=== PATIENT | female | born 1935 | race Two or more races ===

== ENCOUNTER 2016-10-23 09:26 | Outpatient (CLI) | payer MEDICARE, OTHER | END 2016-10-23 09:27 | disposition home or self-care (01) | DX: I12.9 Hypertensive chronic kidney disease with stage 1 through stage 4 chronic kidney disease, or unspecified chronic kidney disease (principal); N18.4 Chronic kidney disease, stage 4 (severe); D56.9 Thalassemia, unspecified ==

== ENCOUNTER 2016-11-14 07:13 | Outpatient (CLI) | payer MEDICARE, OTHER | END 2016-11-14 07:14 | disposition home or self-care (01) | DX: R19.7 Diarrhea, unspecified (principal) ==

== ENCOUNTER 2016-11-24 03:00 | Emergency (ER) | payer MEDICARE, OTHER ==
[2016-11-24] MEDS ORDERED: SODIUM CHLORIDE 0.9% 1,000 ML IV ONE (03:10)
[2016-11-24] MEDS ORDERED: LOPERAMIDE 2 MG CAPSULE PO STA (05:23)
[2016-11-24] MEDS ORDERED: LOPERAMIDE 2 MG CAPSULE PO ONE (05:29)
== END 2016-11-24 05:39 | disposition home or self-care (01) ==
DX: I13.0 Hypertensive heart and chronic kidney disease with heart failure and stage 1 through stage 4 chronic kidney disease, or unspecified chronic kidney disease (principal); N18.4 Chronic kidney disease, stage 4 (severe); I50.9 Heart failure, unspecified; D63.1 Anemia in chronic kidney disease; E78.00 Pure hypercholesterolemia, unspecified; M10.9 Gout, unspecified; Z79.82 Long term (current) use of aspirin; F17.200 Nicotine dependence, unspecified, uncomplicated

== ENCOUNTER 2016-11-27 17:53 | Inpatient (IN) | payer MEDICARE, OTHER ==
[2016-11-27] MEDS ORDERED: ASPIRIN CHEW 81 MG TABLET PO STA (18:43)
[2016-11-27] MEDS ORDERED: SODIUM CHLORIDE 0.9% 1,000 ML IV ONE (18:44)
[2016-11-27] MEDS ORDERED: SODIUM CHLORIDE 0.9% 500 ML IV ONE (18:44)
[2016-11-27] MEDS ORDERED: ASPIRIN CHEW 81 MG TABLET ONE ×2 (18:58→19:13)
[2016-11-27] MEDS ORDERED: ONDANSETRON ODT 4 MG TABLET TL PRN (19:58)
[2016-11-27] MEDS ORDERED: PROCHLORPERAZINE 10 MG/2 ML VIAL IVP PRN (19:58)
[2016-11-27] MEDS ORDERED: ATENOLOL 25 MG TABLET PO SCH (21:00)
[2016-11-27] MEDS ORDERED: FELODIPINE ER 2.5 MG TABLET PO SCH (21:00)
[2016-11-27] MEDS: SODIUM CHLORIDE 0.9% 1,000 ML IV SCH (21:27)
[2016-11-27] MEDS: ATORVASTATIN 10 MG TABLET PO SCH (22:55)
[2016-11-27] MEDS: cloNIDine 0.1 MG TABLET PO SCH (22:55)
[2016-11-27] MEDS: SODIUM CHLORIDE FLUSH 0.9% 10 ML SYRINGE IVP SCH (22:56)
[2016-11-28] MEDS: SODIUM CHLORIDE 0.9% 1,000 ML IV SCH ×2 (00:07→10:06)
[2016-11-28] MEDS ORDERED: FELODIPINE ER 2.5 MG TABLET PO SCH (01:30)
[2016-11-28] MEDS ORDERED: ATENOLOL 25 MG TABLET PO SCH (01:30)
[2016-11-28] MEDS: SODIUM CHLORIDE FLUSH 0.9% 10 ML SYRINGE IVP SCH ×3 (05:44→11:55)
[2016-11-28] MEDS ORDERED: ACETAMINOPHEN 325 MG TABLET PO SCH (06:38)
[2016-11-28] MEDS ORDERED: diphenhydrAMINE 25 MG CAPSULE PO SCH (09:00)
[2016-11-28] MEDS ORDERED: ALLOPURINOL 100 MG TABLET PO SCH (09:00)
[2016-11-28] MEDS: ASPIRIN CHEW 81 MG TABLET PO SCH (09:54)
[2016-11-28] MEDS: cloNIDine 0.1 MG TABLET PO SCH ×2 (09:54→20:35)
[2016-11-28] MEDS: POLYETHYLENE GLYCOL 3350 17 GM PACKET PO SCH (09:55)
[2016-11-28] MEDS: LACTULOSE 10 GM/15 ML BOTTLE PR SCH (09:55)
[2016-11-28] MEDS ORDERED: SODIUM CHLORIDE 0.9% 250 ML IV ONE (10:28)
[2016-11-28] MEDS: NICOTINE 7 MG PATCH TOP SCH (10:47)
[2016-11-28] MEDS: MORPHINE 2 MG/ML SYRINGE IVP PRN (11:55)
[2016-11-28] MEDS: SODIUM BICARBONATE 100 MEQ in DEXTROSE 5% 1,000 ML IV SCH ×2 (12:29→23:49)
[2016-11-28] MEDS: ONDANSETRON 4 MG/2 ML VIAL IVP PRN (12:56)
[2016-11-28] MEDS ORDERED: LORazepam 2 MG/ML SYRINGE IVP SCH (14:00)
[2016-11-28] MEDS: ATORVASTATIN 10 MG TABLET PO SCH (20:35)
[2016-11-29] MEDS: SODIUM CHLORIDE FLUSH 0.9% 10 ML SYRINGE IVP SCH ×3 (06:13→23:00)
[2016-11-29] MEDS: NICOTINE 7 MG PATCH TOP SCH (07:15)
[2016-11-29] MEDS: SODIUM BICARBONATE 100 MEQ in DEXTROSE 5% 1,000 ML IV SCH (10:00)
[2016-11-29] MEDS: LACTULOSE 10 GM/15 ML BOTTLE PR SCH (10:11)
[2016-11-29] MEDS: ASPIRIN CHEW 81 MG TABLET PO SCH (10:11)
[2016-11-29] MEDS: cloNIDine 0.1 MG TABLET PO SCH ×2 (10:11→20:19)
[2016-11-29] MEDS: POLYETHYLENE GLYCOL 3350 17 GM PACKET PO SCH (10:22)
[2016-11-29] MEDS: SODIUM CHLORIDE FLUSH 0.9% 10 ML SYRINGE IVP PRN ×2 (15:47→19:56)
[2016-11-29] MEDS: ONDANSETRON 4 MG/2 ML VIAL IVP PRN (15:47)
[2016-11-29] MEDS ORDERED: FUROSEMIDE 40 MG/4 ML VIAL IVP SCH (19:40)
[2016-11-29] MEDS: ATORVASTATIN 10 MG TABLET PO SCH (20:18)
[2016-11-30] MEDS: SODIUM CHLORIDE FLUSH 0.9% 10 ML SYRINGE IVP SCH ×3 (05:35→20:23)
[2016-11-30] MEDS ORDERED: ALBUTEROL NEB 2.5 MG/3 ML INH PRN (08:17)
[2016-11-30] MEDS: NICOTINE 7 MG PATCH TOP SCH (09:21)
[2016-11-30] MEDS: IPRATROPIUM/ALBUTEROL 3 ML NEB INH PRN ×3 (10:55→20:21)
[2016-11-30] MEDS: POLYETHYLENE GLYCOL 3350 17 GM PACKET PO SCH (11:53)
[2016-11-30] MEDS: ASPIRIN CHEW 81 MG TABLET PO SCH (11:53)
[2016-11-30] MEDS: cloNIDine 0.1 MG TABLET PO SCH (11:53)
[2016-11-30] MEDS: DEXTROSE 5%-0.45% NACL 1,000 ML IV SCH (13:33)
[2016-11-30] MEDS: CEFEPIME 1 GM in SODIUM CHLORIDE 0.9% MINIBAG 100 ML IV SCH (13:33)
[2016-11-30] MEDS ORDERED: CALCIUM GLUCONATE 2,000 MG in SODIUM CHLORIDE 0.9% 100ML 100 ML IV ONE (14:00)
[2016-11-30] MEDS: ENALAPRILAT 1.25 MG/ML VIAL IVP PRN (16:51)
[2016-11-30] MEDS ORDERED: cloNIDine 0.2 MG PATCH TOP SCH (17:00)
[2016-11-30] MEDS ORDERED: methylPREDNISolone SUCCINATE 125 MG/2 ML VIAL IVP ONE (17:00)
[2016-11-30] MEDS: ATORVASTATIN 10 MG TABLET PO SCH (20:23)
[2016-12-01] MEDS: DEXTROSE 5%-0.45% NACL 1,000 ML IV SCH (04:40)
[2016-12-01] MEDS: methylPREDNISolone SUCCINATE 40 MG/ML VIAL IVP SCH ×2 (05:56→14:44)
[2016-12-01] MEDS: SODIUM CHLORIDE FLUSH 0.9% 10 ML SYRINGE IVP SCH ×2 (05:58→14:44)
[2016-12-01] MEDS: MORPHINE 2 MG/ML SYRINGE IVP PRN (07:36)
[2016-12-01] MEDS: NICOTINE 7 MG PATCH TOP SCH (08:18)
[2016-12-01] MEDS: ASPIRIN CHEW 81 MG TABLET PO SCH (08:30)
[2016-12-01] MEDS: POLYETHYLENE GLYCOL 3350 17 GM PACKET PO SCH (08:31)
[2016-12-01] MEDS ORDERED: BISACODYL 10 MG SUPP PR ONE (09:00)
[2016-12-01] MEDS: CEFEPIME 1 GM in SODIUM CHLORIDE 0.9% MINIBAG 100 ML IV SCH (12:05)
[2016-12-01] MEDS ORDERED: CALCIUM GLUCONATE 2,000 MG in SODIUM CHLORIDE 0.9% 100ML 100 ML IV ONE (15:00)
[2016-12-01] MEDS ORDERED: DEXTROSE 5% 1,000 ML IV SCH (15:00)
[2016-12-01] MEDS: SODIUM BICARBONATE 100 MEQ in DEXTROSE 5% 1,000 ML IV SCH (17:07)
[2016-12-01] MEDS ORDERED: LIDOCAINE JELLY 2% 5 ML TUBE TOP ONE ×2 (17:13→18:00)
[2016-12-01] MEDS ORDERED: COCAINE 4 ML BOTTLE TOP ONE ×2 (17:13→18:00)
[2016-12-01] MEDS ORDERED: hydrALAZINE INJ 20 MG/ML VIAL IVP SCH (19:58)
[2016-12-01] MEDS: ATORVASTATIN 10 MG TABLET PO SCH (20:38)
[2016-12-02] MEDS: methylPREDNISolone SUCCINATE 40 MG/ML VIAL IVP SCH ×4 (02:45→22:39)
[2016-12-02] MEDS: SODIUM CHLORIDE FLUSH 0.9% 10 ML SYRINGE IVP SCH ×4 (02:46→22:39)
[2016-12-02] MEDS: SODIUM BICARBONATE 100 MEQ in DEXTROSE 5% 1,000 ML IV SCH ×2 (05:13→18:47)
[2016-12-02] MEDS: IPRATROPIUM/ALBUTEROL 3 ML NEB INH PRN (07:35)
[2016-12-02] MEDS: NICOTINE 7 MG PATCH TOP SCH (09:41)
[2016-12-02] MEDS: ASPIRIN CHEW 81 MG TABLET PO SCH (09:41)
[2016-12-02] MEDS: SODIUM CHLORIDE FLUSH 0.9% 10 ML SYRINGE IVP PRN (09:42)
[2016-12-02] MEDS: POLYETHYLENE GLYCOL 3350 17 GM PACKET PO SCH (09:42)
[2016-12-02] MEDS: CEFEPIME 1 GM in SODIUM CHLORIDE 0.9% MINIBAG 100 ML IV SCH (11:48)
[2016-12-02] MEDS: NIFEdipine 10 MG CAPSULE PO SCH ×2 (13:57→20:13)
[2016-12-02] MEDS ORDERED: DEXTROSE GEL 37.5 GM TUBE PO PRN (17:03)
[2016-12-02] MEDS ORDERED: DEXTROSE 5% 1,000 ML IV PRN (17:03)
[2016-12-02] MEDS ORDERED: DEXTROSE 50% ABBOJECT 25 GM/50 ML SYRINGE IVP PRN (17:03)
[2016-12-02] MEDS ORDERED: GLUCAGON 1 MG/ML VIAL SUBQ PRN (17:03)
[2016-12-02] MEDS: ONDANSETRON 4 MG/2 ML VIAL IVP PRN (17:16)
[2016-12-02] MEDS: INSULIN REGULAR HUMAN 100 UNIT/1 ML 10 ML MDV SUBQ SCH (18:09)
[2016-12-02] MEDS: SODIUM CHLORIDE 0.9% 1,000 ML IV SCH (18:46)
[2016-12-02] MEDS: ATORVASTATIN 10 MG TABLET PO SCH (18:48)
[2016-12-02] MEDS ORDERED: MAGNESIUM SULFATE 2 GRAM 50 ML IV SCH (22:41)
[2016-12-03] MEDS: INSULIN REGULAR HUMAN 100 UNIT/1 ML 10 ML MDV SUBQ SCH ×5 (00:07→22:03)
[2016-12-03] MEDS: SODIUM CHLORIDE 0.9% 1,000 ML IV SCH (06:23)
[2016-12-03] MEDS: methylPREDNISolone SUCCINATE 40 MG/ML VIAL IVP SCH ×3 (06:27→22:06)
[2016-12-03] MEDS: SODIUM CHLORIDE FLUSH 0.9% 10 ML SYRINGE IVP SCH ×3 (06:27→23:32)
[2016-12-03] MEDS: IPRATROPIUM/ALBUTEROL 3 ML NEB INH PRN ×2 (07:10→11:00)
[2016-12-03] MEDS: NICOTINE 7 MG PATCH TOP SCH (08:53)
[2016-12-03] MEDS: ONDANSETRON 4 MG/2 ML VIAL IVP PRN ×2 (08:53→17:23)
[2016-12-03] MEDS: SODIUM CHLORIDE FLUSH 0.9% 10 ML SYRINGE IVP PRN (08:54)
[2016-12-03] MEDS: ASPIRIN CHEW 81 MG TABLET PO SCH (09:03)
[2016-12-03] MEDS: CALCIUM ACETATE 667 MG CAPSULE PO SCH ×3 (09:03→17:23)
[2016-12-03] MEDS: POLYETHYLENE GLYCOL 3350 17 GM PACKET PO SCH ×2 (09:04→17:26)
[2016-12-03] MEDS: NIFEdipine 10 MG CAPSULE PO SCH ×2 (09:05→20:30)
[2016-12-03] MEDS: CEFEPIME 1 GM in SODIUM CHLORIDE 0.9% MINIBAG 100 ML IV SCH (11:40)
[2016-12-03] MEDS ORDERED: FUROSEMIDE 40 MG/4 ML SOLUTION FT SCH (15:00)
[2016-12-03] MEDS: ATORVASTATIN 10 MG TABLET PO SCH (15:07)
[2016-12-03] MEDS: ACETAMINOPHEN 1,000 MG/100 ML 100 ML IV PRN (20:39)
[2016-12-03] MEDS ORDERED: BISACODYL 10 MG SUPP PR SCH (21:48)
[2016-12-04] MEDS: INSULIN REGULAR HUMAN 100 UNIT/1 ML 10 ML MDV SUBQ SCH ×2 (00:36→05:29)
[2016-12-04] MEDS: MORPHINE SOL 10 MG/0.5 ML SYRINGE PO PRN ×2 (00:58→05:17)
[2016-12-04] MEDS ORDERED: LORazepam 1 MG/0.5 ML ORAL SYRINGE PO PRN (02:52)
[2016-12-04] MEDS ORDERED: BISACODYL 10 MG SUPP PR PRN (03:26)
[2016-12-04] MEDS: ACETAMINOPHEN 1,000 MG/100 ML 100 ML IV PRN (04:02)
[2016-12-04] MEDS: ENALAPRILAT 1.25 MG/ML VIAL IVP PRN (04:52)
[2016-12-04] MEDS: methylPREDNISolone SUCCINATE 40 MG/ML VIAL IVP SCH (05:30)
[2016-12-04] MEDS: SODIUM CHLORIDE FLUSH 0.9% 10 ML SYRINGE IVP SCH ×3 (05:30→22:09)
[2016-12-04] MEDS ORDERED: cloNIDine 0.3 MG PATCH TOP SCH (09:00)
[2016-12-04] MEDS: NICOTINE 7 MG PATCH TOP SCH (09:08)
[2016-12-04] MEDS: ASPIRIN CHEW 81 MG TABLET PO SCH (09:08)
[2016-12-04] MEDS: NIFEdipine 10 MG CAPSULE PO SCH (09:08)
[2016-12-04] MEDS: POLYETHYLENE GLYCOL 3350 17 GM PACKET PO SCH (09:43)
[2016-12-04] MEDS ORDERED: DEXTROSE 5% 1,000 ML IV ONE (10:14)
[2016-12-04] MEDS: CALCIUM ACETATE 667 MG CAPSULE PO SCH ×2 (10:31→12:20)
[2016-12-04] MEDS: ONDANSETRON 4 MG/2 ML VIAL IVP PRN (10:50)
[2016-12-04] MEDS ORDERED: LORazepam 0.5 MG TABLET FT ONE (11:00)
[2016-12-04] MEDS ORDERED: INSULIN REGULAR HUMAN 100 UNIT/1 ML 10 ML MDV SUBQ SCH (12:00)
[2016-12-04] MEDS: CEFEPIME 1 GM in SODIUM CHLORIDE 0.9% MINIBAG 100 ML IV SCH (12:20)
[2016-12-04] MEDS ORDERED: LORazepam 2 MG/ML SYRINGE IVP PRN (13:16)
[2016-12-04] MEDS ORDERED: ATROPINE 1% OPHTH DROPS 2 ML SL PRN (13:16)
[2016-12-04] MEDS ORDERED: HALOPERIDOL 5 MG/ML VIAL IVP PRN (13:16)
[2016-12-04] MEDS ORDERED: MORPHINE SOL 10 MG/0.5 ML SYRINGE PO PRN (13:22)
[2016-12-04] MEDS: HYDROmorphone 1 MG/ML SYRINGE IVP PRN ×3 (13:32→22:21)
[2016-12-04] MEDS ORDERED: SCOPOLAMINE PATCH TOP SCH (17:00)
[2016-12-04] MEDS: ATORVASTATIN 10 MG TABLET PO SCH (18:38)
== END 2016-12-05 03:20 | disposition expired | DRG 64 ==
PROC: 30233N1 Transfusion of Nonautologous Red Blood Cells into Peripheral Vein, Percutaneous Approach (ICD-10-PCS; principal; 2016-11-28)
DX: I63.9 Cerebral infarction, unspecified (principal); R29.719 NIHSS score 19; I13.0 Hypertensive heart and chronic kidney disease with heart failure and stage 1 through stage 4 chronic kidney disease, or unspecified chronic kidney disease; N18.9 Chronic kidney disease, unspecified; K63.1 Perforation of intestine (nontraumatic); J18.9 Pneumonia, unspecified organism; F17.200 Nicotine dependence, unspecified, uncomplicated; N18.6 End stage renal disease; G81.91 Hemiplegia, unspecified affecting right dominant side; N17.9 Acute kidney failure, unspecified; I13.2 Hypertensive heart and chronic kidney disease with heart failure and with stage 5 chronic kidney disease, or end stage renal disease; E87.2 Acidosis; R47.01 Aphasia; R47.02 Dysphasia; R29.810 Facial weakness; I46.9 Cardiac arrest, cause unspecified; D50.9 Iron deficiency anemia, unspecified; D63.8 Anemia in other chronic diseases classified elsewhere; I50.9 Heart failure, unspecified; D56.9 Thalassemia, unspecified; F03.90 Unspecified dementia, unspecified severity, without behavioral disturbance, psychotic disturbance, mood disturbance, and anxiety; E21.3 Hyperparathyroidism, unspecified; M10.9 Gout, unspecified; E78.5 Hyperlipidemia, unspecified; H47.019 Ischemic optic neuropathy, unspecified eye; Y95 Nosocomial condition; Z66 Do not resuscitate; Z72.0 Tobacco use; Z79.82 Long term (current) use of aspirin